=== PATIENT | male | born 1945 | race Two or more races ===

== ENCOUNTER 2024-11-21 20:07 | Inpatient (IN) | payer MEDICARE ==
[~2024-11-21] VITALS: Ht 165.1 cm; Wt 93.4 kg
[2024-11-21 20:20] VITALS: BP 197/81; TEMP 97.7; O2SAT 97
[2024-11-21] MEDS ORDERED: ONDANSETRON HCL/PF 4 MG/2 ML VIAL IVP PRN (21:00)
[2024-11-21] MEDS ORDERED: MAGNESIUM HYDROXIDE 30 ML UDC PO PRN (21:00)
[2024-11-21] MEDS ORDERED: MAG HYDROX/AL HYDROX/SIMETH 30 ML UDC PO PRN (21:00)
[2024-11-21] MEDS: hydrALAZINE HCL IV 20 MG VIAL IV PRN (21:48)
[2024-11-21 22:08] VITALS: BP 129/53
[2024-11-22] MEDS: ACETAMINOPHEN 325 MG TABLET PO PRN (00:31)
[2024-11-22 01:53] VITALS: BP 129/53
[2024-11-22 06:22] LABS: PLATELET COUNT (AUTO) 102 K/uL (150-450); RED BLOOD CELL COUNT(AUTO) 3.13 MIL/uL (4.5-6.0); RED CELL DISTRIBUTION WIDTH 15.2 % (11.5-15.0); WHITE BLOOD COUNT (AUTO) 3.2 K/uL (4.3-11.0)
[2024-11-22 06:38] LABS: CREATININE 5.7 mg/dL (0.6-1.3); PHOSPHORUS 5.4 mg/dL (2.5-4.9); SODIUM SERUM 142.0 mmol/L (136-145); UREA NITROGEN, BLOOD 70.0 mg/dL (7-18)
[2024-11-22 06:51] LABS: CALCIUM, SERUM 8.0 mg/dL (8.5-10.1)
[2024-11-22 07:00] VITALS: BP 131/69; TEMP 97.7; O2SAT 95
[2024-11-22 07:01] LABS: LDL 46.0 mg/dL (0-99)
[2024-11-22 11:30] VITALS: BP 129/59; TEMP 97.9; O2SAT 96
[2024-11-22 17:00] VITALS: BP 131/55; TEMP 98.3; O2SAT 95
[2024-11-22] MEDS ORDERED: ATOR80TA PO (17:43)
[2024-11-22] MEDS ORDERED: LEVO50TA8 PO (17:43)
[2024-11-22] MEDS ORDERED: CLON0.1T PO (17:43)
[2024-11-22] MEDS ORDERED: ISOS60TA72 PO (17:43)
[2024-11-22] MEDS ORDERED: TERA2CAP4 PO (17:43)
[2024-11-22] MEDS ORDERED: HYDR100T27 PO (17:43)
[2024-11-22] MEDS ORDERED: BUME2TAB7 PO (17:43)
[2024-11-22] MEDS ORDERED: NIFE30TA91 PO (17:43)
[2024-11-22] MEDS ORDERED: POLY17PO4 PO (17:43)
[2024-11-22] MEDS ORDERED: MEMA28CA5 PO (17:43)
[2024-11-22] MEDS ORDERED: DONE5TAB7 PO (17:43)
[2024-11-22] MEDS ORDERED: ACET325T53 PO (17:43)
[2024-11-22] MEDS ORDERED: FEBU40TA PO (17:43)
[2024-11-22] MEDS ORDERED: CLOP75TA15 PO (17:43)
[2024-11-22 20:00] VITALS: BP 133/57; TEMP 98.1; O2SAT 97
[2024-11-22] MEDS: DONEPEZIL 5 MG TABLET PO SCH (23:07)
[2024-11-22] MEDS: ATORVASTATIN 40 MG TABLET PO SCH (23:07)
[2024-11-22] MEDS: CLOPIDOGREL BISULFATE 75 MG TABLET PO SCH (23:08)
[2024-11-23] VITALS (8 sets, daily range): BP systolic 97–143; BP diastolic 47–73; TEMP 97.5–208.6; O2SAT 96–98
[2024-11-23 06:24] LABS: PLATELET COUNT (AUTO) 101 K/uL (150-450); RED BLOOD CELL COUNT(AUTO) 3.11 MIL/uL (4.5-6.0); RED CELL DISTRIBUTION WIDTH 15.3 % (11.5-15.0); WHITE BLOOD COUNT (AUTO) 2.8 K/uL (4.3-11.0)
[2024-11-23 06:47] LABS: ASPARTATE AMINOTRANSFERASE 11.0 U/L (15-37); CALCIUM, SERUM 7.9 mg/dL (8.5-10.1); CREATININE 4.9 mg/dL (0.6-1.3); PHOSPHORUS 5.4 mg/dL (2.5-4.9); SODIUM SERUM 142.0 mmol/L (136-145); TOTAL PROTEIN, SERUM 6.4 g/dL (6.4-8.2); UREA NITROGEN, BLOOD 62.0 mg/dL (7-18)
[2024-11-23] MEDS: LEVOTHYROXINE SODIUM 50 MCG TABLET PO SCH (06:48)
[2024-11-23] MEDS: MEMANTINE HCL 5 MG TABLET PO SCH (08:20)
[2024-11-23] MEDS: NIFEdipine XL (30MG) 30 MG TAB PO SCH (08:21)
[2024-11-23] MEDS: CLONIDINE HCL 0.1 MG TABLET PO SCH (08:21)
[2024-11-23] MEDS: TERAZOSIN HCL 1 MG CAPSULE PO SCH (08:37)
[2024-11-23] MEDS: ISOSORBIDE MONONITRATE (30MG) 30 MG TAB.SR.24H PO SCH (08:40)
[2024-11-23] MEDS: LORAZEPAM 0.5 MG TABLET PO ONE (20:19)
[2024-11-24] VITALS (7 sets, daily range): BP systolic 101–165; BP diastolic 60–80; TEMP 97.5–98.9; O2SAT 96–99
[2024-11-24 04:07] LABS: HEPATITIS B CORE AB, TOTAL Negative (Negative); HEPATITIS B SURFACE AB (QUAL) Reactive (.)
[2024-11-24] MEDS: SERTRALINE HCL 25 MG TABLET PO SCH (09:11)
[2024-11-24] MEDS: POTASSIUM CHLORIDE 20 MEQ TAB.PRT.SR PO SCH (09:15)
[2024-11-24] MEDS: LORAZEPAM 0.5 MG TABLET PO PRN (11:30)
== END 2024-11-24 17:59 | DRG 640 ==
LOC: MED 20:07 → TELE 21:02
PROVIDERS: ATTEND Internal Medicine
PROC: 5A1D70Z Performance of Urinary Filtration, Intermittent, Less than 6 Hours Per Day (ICD-10-PCS; principal; 2024-11-22)
DX: E87.5 Hyperkalemia (principal); N18.6 End stage renal disease; I13.2 Hypertensive heart and chronic kidney disease with heart failure and with stage 5 chronic kidney disease, or end stage renal disease; Z99.2 Dependence on renal dialysis; I50.9 Heart failure, unspecified; M75.101 Unspecified rotator cuff tear or rupture of right shoulder, not specified as traumatic; Z86.73 Personal history of transient ischemic attack (TIA), and cerebral infarction without residual deficits; M89.8X9 Other specified disorders of bone, unspecified site; I05.0 Rheumatic mitral stenosis; D53.9 Nutritional anemia, unspecified; F32.A Depression, unspecified; G47.20 Circadian rhythm sleep disorder, unspecified type; M16.11 Unilateral primary osteoarthritis, right hip; Q66.222 Congenital metatarsus adductus, left foot; Z60.4 Social exclusion and rejection; W19.XXXA Unspecified fall, initial encounter; Y92.9 Unspecified place or not applicable; Z79.899 Other long term (current) drug therapy; Z79.02 Long term (current) use of antithrombotics/antiplatelets; Z79.890 Hormone replacement therapy
CPT/HCPCS: 36415; 71045-TC; 80048-TC; 80053-TC; 80061-TC; 83735-TC; 84100-TC; 84484-TC; 85025-TC; 86704; 86706; 87340; 90935-TC; 93307-TC; 93971-TC; 97110-TC; 97116-TC; 97530-TC; G0378; J0360; J7030